=== PATIENT | female | born 2000 | race Two or more races ===

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

== ENCOUNTER 2022-01-30 08:21 | Emergency (ER) | payer MEDICAID ==
[~2022-01-30] VITALS: Ht 152.4 cm; Wt 54.5 kg
[~2022-01-30 08:21] MED LIST: ALBUAER3 IN; DOCU-94 PO; FER325T PO; LEVO-28 PO; PRED20TA2 PO
[2022-01-30] MEDS ORDERED: DexAMETHasone 4 MG TAB PO ONE (10:30)
[2022-01-30] MEDS ORDERED: ALBUTEROL SULF 2.5 MG/0.5ML(0.5%) NEB SOLN NEB ONE (10:30)
[2022-01-30] MEDS ORDERED: guaiFENesin 200 MG/10 ML UD PO ONE (10:30)
[2022-01-30] MEDS ORDERED: IPRATROPIUM BROM 0.5 MG/2.5ML INH SOL NEB ONE (10:30)
[2022-01-30 14:25] VITALS: BP 117/64
== END 2022-01-30 14:24 | disposition home or self-care (01) ==
LOC: ER 08:21 → EDBD 08:21 → ER 14:24
DX: J45.901 Unspecified asthma with (acute) exacerbation (principal)
CPT/HCPCS: 93005; 94640; 99283; J7644; J8540